=== PATIENT | female | born 1940 | race African-American/Black ===

== ENCOUNTER 2017-04-01 14:00 | Outpatient (RCR) | payer MEDICARE, SELFPAY | END 2017-04-16 | LOC: PT 14:00 | PROVIDERS: Visit Provider Family Medicine | DX: M25.561 Pain in right knee (principal); M25.562 Pain in left knee | CPT/HCPCS: G8978; G8979; G8980; 97110; 97163 ==

== ENCOUNTER 2017-10-19 15:00 | Outpatient (RCR) | payer MEDICARE, SELFPAY | END 2017-10-19 15:01 | disposition home or self-care (01) | LOC: PT 15:00 | PROVIDERS: Family Provider Family Medicine; PCP Family Medicine; Visit Provider Family Medicine | DX: M17.0 Bilateral primary osteoarthritis of knee (principal); R26.81 Unsteadiness on feet | CPT/HCPCS: 97110; 97112; 97163 ==

== ENCOUNTER → 2018-04-07 16:00 | Outpatient (CLI) | payer MEDICARE, SELFPAY ==
--- NOTE | 2018-04-07 | NVE_ITS ---
Venous Exam Indications: 729.5 Pain in limb. 729.81 Swelling of limb. IMPRESSIONS 1. There is no evidence of significant Reflux. 2. No evidence of deep or superficial vein thrombosis involving the left lower extremity Left lower extremity venous duplex evaluation. Doppler flow study including spectral analysis, color and spencer scale imaging. Location: Vascular laboratory. Patient status: Outpatient. Tables: Venous flow and imaging: + +-------+ + Location Overall Flow properties + +-------+ + Left common femoral Patent Normal phasicity; spontaneous; normal augmentation; compressible + +-------+ + Left saphenofemoral junction Patent Compressible + +-------+ + Left profunda femoral Patent Compressible + +-------+ + Left femoral Patent Normal phasicity; spontaneous; normal augmentation; compressible + +-------+ + Left greater saphenous Patent Normal phasicity; spontaneous; normal augmentation; compressible + +-------+ + Left popliteal Patent Normal phasicity; spontaneous; normal augmentation; compressible + +-------+ + Left posterior tibial Patent Compressible + +-------+ + Left peroneal Patent Compressible + +-------+ + Left gastrocnemius Patent Compressible + +-------+ + Left soleal Patent Compressible + +-------+ + (Report amended ) Electronically signed by: Uzair Sepulveda [id number]
== END ==
PROVIDERS: PCP Nurse Practitioner Family; Visit Provider Nurse Practitioner Family
DX: M79.605 Pain in left leg (principal); M79.89 Other specified soft tissue disorders
CPT/HCPCS: 93971

== ENCOUNTER → 2018-11-10 12:42 | Outpatient (CLI) | payer MEDICARE, SELFPAY | PROVIDERS: Visit Provider Podiatrist | DX: L85.3 Xerosis cutis (principal) | CPT/HCPCS: 87070; 87077; 87186; 87205; 87220 ==

== ENCOUNTER 2019-10-05 13:00 | Outpatient (RCR) | payer MEDICARE, SELFPAY ==
--- NOTE | 2019-06-08 13:58 | HMH.PTOPWND ---
Rehab Outpt Wound Evaluation Rehab OP Wound Evaluation Start: 06/08/19 13:18 Freq: Status: Active Protocol: Document 06/08/19 13:42 RICKY (Rec: 06/08/19 13:58 PHORNE [id number]) Electronically Signed By Drake Olvera, PT 06/08/19 13:42 Subjective/History History History Pt is 78 yoaaf who presents with B LE edema and pain x several years, gradually worse . She also has hx of B lower leg schultz I stepped in hot grease, that occurred many years ago. She presents this date with severe hyperkeratosis of B lower legs , R > L. She reports pain in B LE that is fairly constant, but intermittently worse. She reports no numbness or tingling in the LE at this time. PMH: DM-II, HTN, B ROBERT, JULIO CÉSAR. Bilateral dorsalis pedis pulse is palpable. Subjective Subjective Pt reports 7/10 pain at this time in B LE. No current open wounds appear due to the increased hyperkeratosis, but wounds are likely present under the hyperkeratotic skin. Lymphedema Eval Classification of Lymphedema Secondary Lymphedema Yes Stemmer's sign Stemmer's Sign yes Stage of Lymphedema Lymphedema stages Stage III (Non-pitting, fibrosis and sclerosis, skin changes) Skin Changes Dry Skin Yes Taut, Shiny Skin Yes Hyperkeratosis Yes Wounds Yes Brittle Uneven Nails Yes Discoloration of Skin Yes Other Changes Yes Pain Scale Pain Scale (0-10) 7 Affected Extremities Areas Affected by Lymphedema/Edema Right Lower Extremity,Left Lower Extremity Manual Lymphatic Drainage Treatment Area MLD Treatment Area Right Lower Extremity,Left Lower Extremity Wound Problems/Impairments Impairments Problems/Impairmments Palpation Tenderness,Impaired Range of Motion,Impaired Endurance,Impaired Gait Pattern,Impaired Walking, Impaired Standing,Increased Edema,Lymph
--- NOTE | 2019-07-28 14:52 | HMH.RHREAS ---
Rehab Reassessment Rehab OP Re-assessment Start: 07/28/19 14:46 Freq: Status: Active Protocol: Document 07/28/19 14:47 RICKY (Rec: 07/28/19 14:50 RICKY [id number]) Electronically Signed By Drake Olvera, PT 07/28/19 14:47 Rehab Re-assessment Subjective Subjective Pt reports she feels less sore and is much better overall. Objective Objective Notes B LE hyperkeratosis ~ 75% reduced with less fibrotic woody edema noted. Assessment Progress Assessment Progressing as Expected Assessment Notes Continues to show reduced edema and hyperkeratosis, but some small open wounds remain on B lower legs. Patient goals met ST,2,3,4 Goals Not Met LT,2,3,4,5 Revised Goals none Plan Plan Continue per initial POC. Frequency of Therapy 2 x/wk Duration of therapy 8 wks Time and Billing Re-Eval Time 15 Re-Eval Billing Units 1 PHYSICIAN CERTIFICATION: I certify the specified therapy services for Anna Frias are required, authorized, and reviewed every 30 days.
--- NOTE | 2019-09-01 14:34 | HMH.RHREAS ---
Rehab Reassessment Rehab OP Re-assessment Start: 07/28/19 14:46 Freq: Status: Active Protocol: Document 09/01/19 14:32 RICKY (Rec: 09/01/19 14:33 RICKY [id number]) Electronically Signed By Drake Olvera, PT 09/01/19 14:32 Rehab Re-assessment Subjective Subjective Pt reports feeling much better overall. Objective Objective Notes Much less Hyperkeratosis noted throughout B lower legs. Pain currently 0/10. Edema remains mildly fibrotic in nature. Assessment Progress Assessment Progressing as Expected Assessment Notes Hyperkeratosis remains persistent on B feet and around the ankles. Edema improving, but continues in B LE. Patient goals met ST,2,3,4 Goals Not Met LT,2,3,4,5 Revised Goals none Plan Plan Continue per initial POC. Frequency of Therapy 2 x/wk Duration of therapy 8 wks Time and Billing Re-Eval Time 15 Re-Eval Billing Units 1 PHYSICIAN CERTIFICATION: I certify the specified therapy services for Anna Frias are required, authorized, and reviewed every 30 days.
== END 2019-10-05 13:05 | disposition home or self-care (01) ==
LOC: PT 13:00
PROVIDERS: PCP Nurse Practitioner Family; Visit Provider Podiatrist
DX: I89.0 Lymphedema, not elsewhere classified (principal); R23.4 Changes in skin texture
CPT/HCPCS: 97140; 97162; 97164; 97597; 97598; 97760

== ENCOUNTER 2020-05-01 14:37 | Emergency (ER) | payer MEDICARE, SELFPAY ==
[2020-05-01 14:38] VITALS: BP 122/73; PULSE 64; RESP 16; TEMP 36.6; O2SAT 98; BMI 27.1
--- NOTE | 2020-05-01 14:51 | HMH.EDUTC ---
[facility] [place] Clinical Impression: Encounter for laboratory testing for COVID-19 virus Disposition: Home, Self-Care Condition on Discharge: Good Instructions: DI for COVID-19 (Suspected or Confirmed ), Coronavirus Disease 2019, Preventing the Spread of Coronavirus Discharge Instructions Additional Instructions: *Monitor Temp, Over the counter Motrin or Tylenol as directed/as needed Tylenol every 4 hours and Motrin every 6 hours (as long as your family doctor has told you that you can take it) for fever or pain. and straight to ER if unable to lower temp less than 101.0 after medication given Follow up IMMEDIATELY for new or worsening symptoms or no Noticeable improvement over the next 48-72 hours. 911 for difficulty breathing or swallowing You were tested for today for COVID19 your test result should be back in the next 24-48 hours, you may call to the [facility] to see if your test results are back in the next 48 hours [phone] [facility] hours are 9am-9pm You was given a handout with instructions for Self Quarantine and Self isolation for while you wait on test results and what to do if they are positive If you are positive the Health Dept will be contacting you also Referrals: Cosmo Atkinson MD [Primary Care Provider] - As needed Time of Disposition: 14:52 Medical Decision Making - Aime Inquiry Pt receiving controlled substance: No Aime was queried for this patient: No Vital Signs: 05/01/20 14:38 Temperature 97.8 F Temperature Source Oral Pulse Rate [Right] 64 Respiratory Rate 16 Blood Pressure [Right Arm] 122/73 Blood Pressure Mean [Right Arm] 89 02 Sat by Pulse Oximetry 98 Orders (Tests/Meds): ORDERS Category Date Time Status Covid-19 Nasal PCR Sendout P&C Stat Lab 05/01/20 14:40 Received [facility] [place] HPI - General Stated complaint: covid test Time Seen by Provider: 05/01/20 14:52 Description of Symptoms (Recalled from Triage Doc. by RN): pt request COVID test pt has no symptoms HEENT Symptoms (Recalled from RN notes): No Resp Symptoms (Recalled from RN notes): No Skin Symptoms (Recalled from RN notes): No MS Symptoms (Recalled from RN notes): No Functional Status (Recalled from RN notes): wnl - History of Present Illness Provider Complaint: Patient states that son wanted her to come in and get tested for COVID States that she was around her son and he later found out that he had been around someone that tested positive for COVID States she was around them directly but wanted tested - Related Data Home Medications Medication Instructions Recorded Confirmed furosemide 40 mg tablet PO tab 11/10/18 05/01/20 lisinopril 40 mg tablet PO tab 11/10/18 05/01/20 memantine ER 28 mg-donepezil 10 mg PO each 11/10/18 05/01/20 capsule sprinkle,ext.release 24 hr omeprazole 20 mg capsule,delayed PO cap 11/10/18 05/01/20 release potassium chloride 20 mEq PO tab 11/10/18 05/01/20 tablet,extended release(part/cryst) docusate sodium 100 mg capsule 100 mg PO DAILY 03/21/19 05/01/20 ergocalciferol (vitamin D2) 1,250 50,000 unit PO QWEEK 03/21/19 05/01/20 mcg (50,000 unit) capsule ferrous sulfate 325 mg (65 mg 325 mg PO DAILY 03/21/19 05/01/20 iron) tablet Previous Rx's Medication Instructions Recorded meloxicam 7.5 mg tablet 7.5 mg PO DAILY 30 Days #30 tab 05/30/19 urea 40 % topical cream 1 applic TOPICAL BID 30 Days #28 g 02/07/20 Allergies Allergy/AdvReac Type Severity Reaction Status Date / Time cephalexin [CEPHALEXIN] Allergy Intermediate Verified 05/01/20 14:48 gabapentin [GABAPENTIN] Allergy Unknown Verified 05/01/20 14:48 CEPHALOSPORINS Allergy Unknown Uncoded 05/30/19 14:03 - Worker's Comp Is this a Worker's Comp case?: No Is this an H Worker's Comp?: No Is this a [place] Worker's Comp?: No [facility] History - Hepatitis A Screen Drug use history?: No High risk sexual behaviors?: No History of sexually transmitted infection?: No Currently employed?: No Childc
[2020-05-01 14:56] VITALS: BP 122/73; PULSE 64; RESP 16; TEMP 36.6; O2SAT 98
[2020-05-02 11:39] LABS: Covid-19 Nasal PCR Sendout P&C NEGATIVE
== END 2020-05-01 14:57 | disposition home or self-care (01) ==
PROVIDERS: Emergency Provider Nurse Practitioner; PCP Family Medicine
DX: Z20.822 Contact with and (suspected) exposure to COVID-19 (principal); I10 Essential (primary) hypertension; E11.9 Type 2 diabetes mellitus without complications; F03.90 Unspecified dementia, unspecified severity, without behavioral disturbance, psychotic disturbance, mood disturbance, and anxiety; K21.9 Gastro-esophageal reflux disease without esophagitis; Z87.891 Personal history of nicotine dependence; Z79.899 Other long term (current) drug therapy
CPT/HCPCS: G0463; 99202; U0004

== ENCOUNTER → 2020-08-13 09:50 | Outpatient (POV) | payer MEDICARE, SELFPAY | PROVIDERS: Visit Provider Dermatology | DX: Z00.00 Encounter for general adult medical examination without abnormal findings (principal) ==

== ENCOUNTER → 2021-03-06 14:38 | Outpatient (CLI) | payer MEDICARE, SELFPAY | PROVIDERS: PCP Family Medicine; Visit Provider Nurse Practitioner | DX: Z20.822 Contact with and (suspected) exposure to COVID-19 (principal) | CPT/HCPCS: C9803; U0003; U0005 ==

== ENCOUNTER → 2021-07-29 13:44 | Outpatient (POV) | payer MEDICARE, SELFPAY | PROVIDERS: Visit Provider Dermatology | DX: Z00.00 Encounter for general adult medical examination without abnormal findings (principal) ==

== ENCOUNTER → 2021-08-12 14:40 | Outpatient (CLI) | payer MEDICARE, SELFPAY ==
[2021-08-12 15:25] LABS: Basophils # 0.1 K/mm3 (0-0.2); Basophils % 1.4 % (0.1-2.0); Eosinophils # 0.2 K/mm3 (0.0-0.4); Eosinophils % 2.7 % (0.1-12.0); Hemoglobin 14.6 g/dL (12.2-16.2); Lymphocytes # 2.4 K/mm3 (0.7-4.5); Lymphocytes % 40.2 % (10-50); Mean Corpuscular HGB Conc 32.5 g/dL (31.8-35.4); Mean Corpuscular Hemoglobin 31.2 pg (27.0-31.2); Mean Corpuscular Volume 95.8 fl (81-99); Mean Platelet Volume 9.7 fl (7.4-10.4); Monocytes # 0.4 K/mm3 (0.1-1.0); Neutrophils # 2.9 K/mm3 (1.8-7.8); Neutrophils % 49.7 % (37.0-80.0); Platelet Count 261 K/mm3 (142-424); Red Cell Distribution Width 13.2 % (11.5-17.5); White Blood Count 5.8 K/mm3 (4.8-10.8)
[2021-08-12 16:29] LABS: Chloride 105 mmol/L (98-107); Potassium 4.7 mmoL/L (3.5-5.1); Sodium 141 mmol/L (136-145)
[2021-08-12 16:31] LABS: Blood Urea Nitrogen 29 mg/dl (7-17); Estimated Glomerular Filt Rate 48 ml/min (>60); GFR (African American) 58 ML/MIN (>60)
[2021-08-12 16:32] LABS: Alanine Aminotransferase 47 U/L (12-78); Albumin/Globulin Ratio 1.1 (1.1-1.8); Alkaline Phosphatase 124 U/L (38-126); Anion Gap 15.7 mEq/L (5-15); Aspartate Amino Transferase 42 U/L (14-36); Bilirubin,Total 0.5 mg/dl (0.2-1.3); Calcium 10.9 mg/dl (8.4-10.2); Carbon Dioxide 25 mmol/L (22.0-30.0); Globulin 3.6 g/dL (1.3-3.2); Glucose 125 mg/dl (74-100); Total Protein,Serum 7.6 g/dl (6.3-8.2)
[2021-08-14 19:18] LABS: QuantiFERON-TB Gold Plus Negative (Negative)
== END ==
PROVIDERS: PCP Family Medicine; Visit Provider Dermatology
DX: L40.0 Psoriasis vulgaris (principal); Z79.899 Other long term (current) drug therapy
CPT/HCPCS: 36415; 80053; 85025; 86480

== ENCOUNTER → 2021-09-23 14:50 | Outpatient (POV) | payer MEDICARE, SELFPAY | PROVIDERS: Visit Provider Dermatology | DX: Z00.00 Encounter for general adult medical examination without abnormal findings (principal) ==

== ENCOUNTER → 2021-12-09 15:11 | Outpatient (CLI) | payer MEDICARE, SELFPAY ==
--- NOTE | 2021-12-09 15:12 | XR_ITS ---
FINAL REPORT CLINICAL HISTORY: evaluate for spinal stenosis, claudication Patient also having MRI of lumbar spine today as well. FINDINGS: LUMBAR SPINE Five views demonstrate no acute fracture. There is 20 degree lumbar scoliosis convex to the right. There are advanced hypertrophic changes of degenerative disc disease in the lower thoracic and upper lumbar spine. There is moderate vascular calcification of the abdominal aorta. IMPRESSION: 20 degree lumbar scoliosis. Mildly advanced hypertrophic changes of degenerative disc disease. Reviewed, Interpreted and Dictated by Calderon Hernández MD Transcribed by Mar Olsen Authenticated and [facility]
--- NOTE | 2021-12-09 15:32 | MR_ITS ---
PROCEDURE INFORMATION: Exam: MR Head Without Contrast Exam date and time: 12/09/2021 3:42 PM Age: 81 years old Clinical indication: Other: Memory loss TECHNIQUE: Imaging protocol: Magnetic resonance imaging of the head without contrast. COMPARISON: HDWO CT HEAD W/O CONTRAST 03/10/2016 5:25 PM FINDINGS: Brain: Scattered subcortical T2/FLAIR hyperintensities which are nonspecific but can be seen with small-vessel occlusive change. No mass. No hemorrhage. No acute ischemia. Cerebral ventricles: Ex vacuo dilatation. Bones/joints: Moderately severe degenerative changes of the cervical spine. Fracture of the dens with 7 mm of anterior displacement narrowing the foramen magnum. Spondylosis and endplate edema most prominent at C3-C4. Disc bulge with spinal canal narrowing most prominent at C4-C5. Paranasal sinuses: Normal as visualized. No acute sinusitis. Mastoid air cells: Normal as visualized. No mastoid effusion. Orbital cavities: Unremarkable. Soft tissues: Unremarkable. IMPRESSION: 1. Scattered subcortical T2/FLAIR hyperintensities which are nonspecific but can be seen with small-vessel occlusive change. 2. Displaced fracture of the dens which narrows the foramen magnum but without significant edema suggesting chronicity. 3. Partially visualized extensive degenerative changes with spondylosis most prominent at C2-C3 and disc bulge causing canal narrowing at C3-C4. THIS REPORT CONTAINS FINDINGS THAT MAY BE CRITICAL TO PATIENT CARE. The findings were verbally communicated via telephone conference with Dr Lyles at 8:30 PM EDT on 12/09/2021. The findings were acknowledged and understood.
--- NOTE | 2021-12-09 15:32 | MR_ITS ---
PROCEDURE INFORMATION: Exam: MR Lumbar Spine Without Contrast Exam date and time: 12/09/2021 3:42 PM Age: 81 years old Clinical indication: Low back pain; Additional info: Evaluate for spinal stenosis, claudication. Lower back pain. Painful when standing/walking / and laying. PT stated bilateral feet numbness and pain x 2 years. No recent injury /truama TECHNIQUE: Imaging protocol: Magnetic resonance imaging of the lumbar spine without contrast. COMPARISON: CR XR LUMBAR SPINE MIN 4V 12/09/2021 3:15 PM FINDINGS: Bones/joints: No acute compression fracture is seen. Mild dextroconvex scoliosis of the lumbar spine is present. There is mild retrolisthesis of L1 on L2. Spinal cord: The conus medullaris terminates at the L1 level. There is no evidence of arachnoiditis or cauda equina compression. T11-T12: Axial imaging through this level was not performed. Nevertheless, there is mild diffuse circumferential disc bulging and moderate facet arthropathy. This is causing mild spinal canal stenosis and mild/moderate right foraminal stenosis. T12-L1: There is mild diffuse circumferential disc bulging and osteophytic ridging. This is causing minimal spinal canal stenosis and mild bilateral foraminal stenosis. L1-L2: There is moderate diffuse circumferential disc bulging with superimposed bilateral subarticular disc protrusions. Bilateral subarticular disc material is migrating caudally roughly 6 mm from the level of the disc. Moderate facet arthropathy and thickening of the ligamentum flavum is also present. This is causing mild spinal canal stenosis, moderate narrowing of the subarticular recesses, moderate right foraminal stenosis, and severe left foraminal stenosis. L2-L3: There is disc dehydration, severe dorsal disc space narrowing, moderate diffuse circumferential disc bulging, circumferential osteophytic ridging, moderate facet arthropathy, and thickening of the ligamentum flavum. This is causing mild spinal canal stenosis, mild narrowing of the subarticular recesses, moderate right foraminal stenosis, and moderate/severe left foraminal stenosis. L3-L4: There is disc dehydration, severe dorsal disc space narrowing, moderate diffuse circumferential disc bulging, circumferential osteophytic ridging, moderate facet arthropathy, and thickening of the ligamentum flavum. This is causing mild/moderate spinal canal stenosis, moderate narrowing of the subarticular recesses, moderate right foraminal stenosis, and mild left foraminal stenosis. L4-L5: There is marked diffuse circumferential disc bulging, circumferential osteophytic ridging, marked thickening of the ligamentum flavum, and moderate facet arthropathy. This is causing moderate spinal canal stenosis, severe narrowing of the left subarticular recess, moderate narrowing of the right subarticular recess, severe left foraminal stenosis, and moderate right foraminal stenosis. L5-S1: There is moderate diffuse circumferential disc bulging and facet arthropathy. This is causing mild narrowing of the right subarticular recess and mild right foraminal stenosis. There is no significant spinal canal or left foraminal stenosis. Soft tissues: Unremarkable. Kidneys and ureters: An incidental 15 mm cyst is noted in the left kidney. IMPRESSION: Marked degenerative changes of the lumbar spine as discussed above
== END ==
PROVIDERS: PCP Nurse Practitioner Family; Visit Provider Nurse Practitioner Family
DX: M54.50 Low back pain, unspecified (principal); R29.2 Abnormal reflex; E11.9 Type 2 diabetes mellitus without complications; G47.9 Sleep disorder, unspecified; G93.40 Encephalopathy, unspecified; I10 Essential (primary) hypertension; M79.89 Other specified soft tissue disorders; N18.9 Chronic kidney disease, unspecified; R35.0 Frequency of micturition; R41.3 Other amnesia; Z87.828 Personal history of other (healed) physical injury and trauma
CPT/HCPCS: 70551; 72110; 72148; 76376

== ENCOUNTER → 2021-12-23 14:27 | Outpatient (CLI) | payer MEDICARE, SELFPAY ==
--- NOTE | 2021-12-23 14:27 | MR_ITS ---
FINAL REPORT CLINICAL HISTORY: abnormal brain MRI, cspine rec by radiologist pt had a cspine fracture 50-60 years ago COMPARISON: MRI brain dated December 09, 2021 FINDINGS: Multiplanar MR imaging of the cervical spine was performed without contrast. On the sagittal T2-weighted images, disc degeneration is seen throughout. There are endplate changes at multiple levels. There is chronic deformity of C2 with an old healed dens fracture. The dens is displaced 6 mm relative to the body. There is a 5 mm focus of increased T2 signal within the cord at the C5 level favoring myelomalacia. The cervicomedullary junction is normal. C1-C2: Chronic C2 dens fracture with anterior displacement of C1 relative to the inferior aspect of C2. There is moderate central canal stenosis with an AP thecal sac diameter of 6 mm. C2-3: There is a disc osteophyte complex. There is severe right and mild left neural foraminal narrowing. C3-4: There is a disc osteophyte complex with mild bilateral neural foraminal narrowing. There is mild central canal stenosis with an AP thecal sac diameter of 7 mm. C4-5: There is a disc osteophyte complex. There is severe bilateral neural foraminal narrowing. There is mild central canal stenosis with an AP thecal sac diameter of 7 mm. C5-6: There is a disc osteophyte complex with severe bilateral neural foraminal narrowing. There is mild central canal stenosis with an AP thecal sac diameter of 8 mm. C6-7: There is a disc osteophyte complex. There is severe bilateral neural foraminal narrowing. There is mild central canal stenosis with an AP thecal sac diameter of 7 mm. C7-T1: There is a disc osteophyte complex with severe bilateral neural foraminal narrowing. T1-T2: There is a disc osteophyte complex with a right foraminal disc protrusion. There is severe bilateral neural foraminal narrowing. IMPRESSION: Chronic deformity of C2 with anterior displacement of the dens. Increased signal within the cord at C5 favors myelomalacia. Multilevel degenerative disc disease with areas of neural foraminal narrowing and central canal stenosis. Right foraminal disc protrusion at T1-T2. Reviewed, Interpreted and Dictated by Gabriel Cruz III, MD Transcribed by Kirt Jiménez Authenticated and [facility]
== END ==
PROVIDERS: PCP Nurse Practitioner Family; Visit Provider Nurse Practitioner Family
DX: M54.2 Cervicalgia (principal); R93.0 Abnormal findings on diagnostic imaging of skull and head, not elsewhere classified
CPT/HCPCS: 72141; 76376